=== PATIENT | male | born 1975 | race Caucasian/White ===

== ENCOUNTER 2017-04-09 20:51 | Observation (INO) | payer BC, OTHER ==
[2017-04-09] MEDS ORDERED: SODIUM CHLORIDE 0.9% 1,000 ML IV STA (21:26)
--- NOTE | 2017-04-09 21:33 | ED ---
General Adult HPI - General Chief complaint: Neuro Symptoms/Deficit Stated complaint: facial and arm numbness Time Seen by Provider: 04/09/17 21:14 Source: patient Mode of arrival: ambulatory Limitations: no limitations - History of Present Illness Initial comments: Patient is a 41-year-old male who presents to the ED via private vehicle for evaluation of right-sided arm and facial numbness. Patient reports he was at work around 6:30 PM today when he began feeling as though his right arm was asleep. He describes the sensation as tingling, numbness and heaviness. He reports he felt the same sensation his right cheek. He denies any facial droop , slurred speech, difficulty with ambulating. She reports that his arm symptoms have seemed to improve since they initially started however he continues to feel as though his right cheek is numb. Patient does have a history of a sinus surgery last year. He has no family history of stroke, aneurysm or brain bleed that he is aware of. He has no known history of aneurysm. He does report he is having a mild headache today although he does get headaches at times so this is not abnormal for him. - Related Data Home Medications Medication Instructions Recorded Confirmed Cholecalciferol [Vitamin D3] 2,000 unit PO DAILY 05/21/16 04/09/17 Multivitamins, Thera [Multivitamin] 1 tab PO DAILY 05/21/16 04/09/17 Escitalopram [Lexapro] 20 mg PO DAILY 07/17/16 04/09/17 Fluticasone Nasal [place] [Flonase 2 spr EA NOSTRIL DAILY 04/09/17 04/09/17 Nasal [place]] L.acidoph,Paracasei, B.lactis 1 cap PO DAILY 04/09/17 04/09/17 [Probiotic] Montelukast [Singulair] 10 mg PO HS 04/09/17 04/09/17 Naproxen Sodium [Aleve] 220 mg PO BID 04/09/17 04/09/17 Allergies Allergy/AdvReac Type Severity Reaction Status Date / Time No Known Allergies Allergy Verified 04/09/17 21:41 Review of Systems ROS Statement: Those systems with pertinent positive or pertinent negative responses have been documented in the HPI. ROS Other: All systems not noted in ROS Statement are negative. Constitutional: Denies: fever, chills Eyes: Denies: eye pain, eye discharge, vision change ENT: Denies: ear pain, throat pain, dental pain, hearing loss Respiratory: Denies: cough, dyspnea Cardiovascular: Denies: chest pain, palpitations Endocrine: Denies: fatigue Gastrointestinal: Denies: abdominal pain, nausea, vomiting Musculoskeletal: Denies: back pain Skin: Reports: lesions (bug bite to right thigh). Denies: rash, change in color Neurological: Reports: headache, numbness, paresthesias. Denies: abnormal gait , vertigo Psychiatric: Denies: anxiety Hematological/Lymphatic: Denies: easy bleeding, easy bruising Past Medical History Past Medical History: No Reported History, Hyperlipidemia History of Any Multi-Drug Resistant Organisms: None Reported Past Surgical History: Cholecystectomy Additional Past Surgical History / Comment(s): dev. septum repair, polyp ectomy 07/13 Past Psychological History: Anxiety Smoking Status: Never smoker Past Alcohol Use History: Occasional Past Drug Use History: None Reported General Exam Limitations: no limitations General appearance: alert, in no apparent distress Head exam: Present: atraumatic, normocephalic, normal inspection Eye exam: Present: normal appearance, PERRL, EOMI. Absent: scleral icterus, conjunctival injection, periorbital swelling ENT exam: Present: normal exam, normal oropharynx, mucous membranes moist, TM's normal bilaterally, normal external ear exam. Absent: mucous membranes dry Neck exam: Present: normal inspection. Absent: tenderness, meningismus, lymphadenopathy Respiratory exam: Present: normal lung sounds bilaterally. Absent: respiratory distress, wheezes, rales, rhonchi, stridor Cardiovascular Exam: Present: regular rate, normal rhythm, normal heart sounds. Absent: systolic murmur, diastolic murmur, rubs, gallop, clicks GI/Abdominal exam: Present: soft, normal bowel sounds. Absent: distended, tenderness, guarding, rebound, rigid Rectal exam: Present: deferred Extremities exam: Present: normal inspection, full ROM, normal capillary refill. Absent: tenderness, pedal edema, joint swelling, calf tenderness Right Shoulder Exam: Present: normal inspection, full ROM. Absent: tenderness, swelling, abrasion, laceration, ecchymosis, deformity, crepitus, dislocation, erythema, tenderness over AC joint Upper Arm exam: Present: normal inspection, full ROM. Absent: tenderness, swelling, abrasion, laceration, ecchymosis, deformity, crepidus, dislocation, erythema Elbow exam: Present: normal inspection, full ROM. Absent: tenderness, swelling , abrasion, laceration, ecchymosis, deformity, crepitus, dislocation, erythema, effusion, pain w/ pronation/supination, tenderness over radial head Forearm Wrist exam: Present: normal inspection, full ROM. Absent: tenderness, swelling, abrasion, laceration, ecchymosis, deformity, crepitus, dislocation, erythema, tenderness over anatomical snuff box, pain with axial thumb loading Hand Wrist exam: Present: normal inspection. Absent: full ROM, tenderness, swelling, abrasion, laceration, ecchymosis, deformity, crepitus, dislocation, erythema, amputation, nail avulsion, subungual hematoma Neuro motor exam: Present: wrist extension intact, thumb opposition intact, thumb IP flexion intact, thumb adduction intact, fingers 2-5 abduction intact Neurosensory exam: Present: radial nerve intact, ulnar nerve intact, median nerve intact Vascular: Present: normal capillary refill. Absent: vascular compromise, pulse deficit radial art, pulse deficit ulnar art Neurological exam: Present: alert, oriented X3, CN II-XII intact. Absent: motor sensory deficit Psychiatric exam: Present: normal affect, normal mood Skin exam: Present: warm, dry, intact, normal color. Absent: rash Course Vital Signs 04/09/17 04/09/17 21:00 22:01 Temperature 96.9 F L Pulse Rate 70 60 Respiratory 18 20 Rate Blood Pressure 109/66 130/58 O2 Sat by Pulse 98 98 Oximetry Medical Decision Making - Medical Decision Making Patient was seen and evaluated, history was obtained from the patient and at bedside Patient with sudden onset of right arm paresthesias and right face paresthesias around 6:30 PM Patient with limited risk factors, only risk factors being obesity and hyperlipidemia. No family history, not a smoker, no history of aneurysms We'll evaluate for possible TIA Patient's NIH score is 0 upon arrival to the ER Labs and CT were ordered Labs mild elevation of CPK, patient denies any recent workout or excessive muscle use. Head CT with no acute process Patient reevaluated, was sleeping comfortably in bed. Upon waking he continues to complain of mild discomfort in the right arm. Patient care was discussed with the admitting team, Dr Clancy, discussed patient's history, history of present illness, physical exam as well as neurologic exam. Admitting team agreed to admission for possible TIA with elevated CPK of unknown cause - Lab Data Result diagrams: 04/09/17 21:58 04/09/17 21:58 Lab Results 04/09/17 04/09/17 04/09/17 Range/Units 21:58 21:58 21:58 WBC 6.9 (3.8-10.6) k/uL RBC 4.92 (4.30-5.90) m/uL Hgb 14.9 (13.0-17.5) gm/dL Hct 43.0 (39.0-53.0) % MCV 87.3 (80.0-100.0) fL MCH 30.3 (25.0-35.0) pg MCHC 34.7 (31.0-37.0) g/dL RDW 13.1 (11.5-15.5) % Plt Count 167 (150-450) k/uL Neutrophils % 60 % Lymphocytes % 28 % Monocytes % 6 % Eosinophils % 2 % Basophils % 1 % Neutrophils # 4.1 (1.3-7.7) k/uL Lymphocytes # 2.0 (1.0-4.8) k/uL Monocytes # 0.4 (0-1.0) k/uL Eosinophils # 0.2 (0-0.7) k/uL Basophils # 0.0 (0-0.2) k/uL PT (9.0-12.0) sec INR (<1.2) APTT (22.0-30.0) sec Sodium 139 (137-145) mmol/L Potassium 4.1 (3.5-5.1) mmol/L Chloride 105 (98-107) mmol/L Carbon Dioxide 25 (22-30) mmol/L Anion Gap 9 mmol/L BUN 19 (9-20) mg/dL Creatinine 1.02 (0.66-1.25) mg/dL Est GFR (MDRD) Af Amer >60 (>60 ml/min/1.73 sqM) Est GFR (MDRD) Non-Af >60 (>60 ml/min/1.73 sqM) Glucose 86 (74-99) mg/dL Calcium 9.1 (8.4-10.2) mg/dL Total Bilirubin 0.6 (0.2-1.3) mg/dL AST 48 (17-59) U/L ALT 44 (21-72) U/L Alkaline Phosphatase 59 (38-126) U/L Total Creatine Kinase 278 H (55-170) U/L CK-MB (CK-2) 2.2 (0.0-2.4) ng/mL CK-MB (CK-2) Rel Index 0.8 Troponin I <0.012 (0.000-0.034) ng/mL Total Protein 7.0 (6.3-8.2) g/dL Albumin 4.2 (3.5-5.0) g/dL Urine Color Urine Appearance (Clear) Urine pH (5.0-8.0) Ur Specific [place] (1.001-1.035) Urine Protein (Negative) Urine Glucose (UA) (Negative) Urine Ketones (Negative) Urine Blood (Negative) Urine Nitrite (Negative) Urine Bilirubin (Negative) Urine Urobilinogen (<2.0) mg/dL Ur Leukocyte Esterase (Negative) Urine Opiates Screen (NotDetected) Ur Oxycodone Screen (NotDetected) Urine Methadone Screen (NotDetected) Ur Propoxyphene Screen (NotDetected) Ur Barbiturates Screen (NotDetected) U Tricyclic Antidepress (NotDetected) Ur Phencyclidine Scrn (NotDetected) Ur Amphetamines Screen (NotDetected) U Methamphetamines Scrn (NotDetected) U Benzodiazepines Scrn (NotDetected) Urine Cocaine Screen (NotDetected) U Marijuana (THC) Screen (NotDetected) 04/09/17 04/09/17 04/09/17 Range/Units 21:58 22:15 22:15 WBC (3.8-10.6) k/uL RBC (4.30-5.90) m/uL Hgb (13.0-17.5) gm/dL Hct (39.0-53.0) % MCV (80.0-100.0) fL MCH (25.0-35.0) pg MCHC (31.0-37.0) g/dL RDW (11.5-15.5) % Plt Count (150-450) k/uL Neutrophils % % Lymphocytes % % Monocytes % % Eosinophils % % Basophils % % Neutrophils # (1.3-7.7) k/uL Lymphocytes # (1.0-4.8) k/uL Monocytes # (0-1.0) k/uL Eosinophils # (0-0.7) k/uL Basophils # (0-0.2) k/uL PT 9.8 (9.0-12.0) sec INR 1.0 (<1.2) APTT 23.1 (22.0-30.0) sec Sodium (137-145) mmol/L Potassium (3.5-5.1) mmol/L Chloride (98-107) mmol/L Carbon Dioxide (22-30) mmol/L Anion Gap mmol/L BUN (9-20) mg/dL Creatinine (0.66-1.25) mg/dL Est GFR (MDRD) Af Amer (>60 ml/min/1.73 sqM) Est GFR (MDRD) Non-Af (>60 ml/min/1.73 sqM) Glucose (74-99) mg/dL Calcium (8.4-10.2) mg/dL Total Bilirubin (0.2-1.3) mg/dL AST (17-59) U/L ALT (21-72) U/L Alkaline Phosphatase (38-126) U/L Total Creatine Kinase (55-170) U/L CK-MB (CK-2) (0.0-2.4) ng/mL CK-MB (CK-2) Rel Index Troponin I (0.000-0.034) ng/mL Total Protein (6.3-8.2) g/dL Albumin (3.5-5.0) g/dL Urine Color Light Yellow Urine Appearance Clear (Clear) Urine pH 6.5 (5.0-8.0) Ur Specific [place] 1.004 (1.001-1.035) Urine Protein Negative (Negative) Urine Glucose (UA) Negative (Negative) Urine Ketones Negative (Negative) Urine Blood Negative (Negative) Urine Nitrite Negative (Negative) Urine Bilirubin Negative (Negative) Urine Urobilinogen <2.0 (<2.0) mg/dL Ur Leukocyte Esterase Negative (Negative) Urine Opiates Screen Not Detected (NotDetected) Ur Oxycodone Screen Not Detected (NotDetected) Urine Methadone Screen Not Detected (NotDetected) Ur Propoxyphene Screen Not Detected (NotDetected) Ur Barbiturates Screen Not Detected (NotDetected) U Tricyclic Antidepress Not Detected (NotDetected) Ur Phencyclidine Scrn Not Detected (NotDetected) Ur Amphetamines Screen Not Detected (NotDetected) U Methamphetamines Scrn Not Detected (NotDetected) U Benzodiazepines Scrn Not Detected (NotDetected) Urine Cocaine Screen Not Detected (NotDetected) U Marijuana (THC) Screen Not Detected (NotDetected) Disposition Clinical Impression: TIA (transient ischemic attack), Elevated CPK Disposition: ADMITTED IP TO THIS HOSP Condition: Good Referrals: Toni Grace MD [Primary Care Provider] - 1-2 days
--- NOTE | 2017-04-09 22:07 | CT ---
EXAMINATION TYPE: CT brain wo con DATE OF EXAM: 04/09/2017 COMPARISON: 08/10/2016 HISTORY: Left sided arm pain and numbness CT DLP: 1090.4 mGycm. Automated Exposure Control for Dose Reduction was Utilized. TECHNIQUE: CT scan of the head is performed without contrast. FINDINGS: Ventricles of normal size. There is no mass effect nor midline shift. There is no sign of i ntracranial hemorrhage. The calvarium is intact.. IMPRESSION: Negative CT scan of the brain. There is clearing of the sinus fluid levels compared to ol d exam. No sign of cerebral infarct..
[2017-04-09 22:13] LABS: Basophils % (A) 1 %; CH 30.1; CHCM 34.6; Eosinophils # (A) 0.2 k/uL (0-0.7); Eosinophils % (A) 2 %; HDW 2.57; HGB 14.9 gm/dL (13.0-17.5); Luc # (Auto) 0.15; Luc % (Auto) 2; Lymphocytes % (A) 28 %; MCH 30.3 pg (25.0-35.0); MCHC 34.7 g/dL (31.0-37.0); MCV 87.3 fL (80.0-100.0); Mean Platelet Volume 7.9; Monocytes # (A) 0.4 k/uL (0-1.0); Monocytes % (A) 6 %; Neutrophils # (A) 4.1 k/uL (1.3-7.7); Neutrophils % (A) 60 %; RBC 4.92 m/uL (4.30-5.90); RDW 13.1 % (11.5-15.5); WBC 6.9 k/uL (3.8-10.6); WBC (Perox) 7.01
--- NOTE | 2017-04-09 22:15 | XR ---
EXAMINATION TYPE: XR chest 2V DATE OF EXAM: 04/09/2017 COMPARISON: 05/21/2016 HISTORY: Left arm numbness TECHNIQUE: Frontal and lateral views of the chest are obtained. FINDINGS: Heart and mediastinum are normal. Lungs are clear. Diaphragm is normal. Bony thorax is int act. IMPRESSION: Normal chest. No change.
[2017-04-09 22:21] LABS: Partial Thromboplastin Time 23.1 sec (22.0-30.0); Prothrombin Time 9.8 sec (9.0-12.0)
[2017-04-09 22:23] LABS: Appearance,Urine Clear (Clear); Bilirubin,Urine Negative (Negative); Glucose,Urine (UA) Negative (Negative); Ketones,Urine Negative (Negative); Leukocyte Esterase,Urine Negative (Negative); Nitrite,Urine Negative (Negative); PH, Urine 6.5 (5.0-8.0); Protein,Urine Negative (Negative); Specific Gravity,Urine 1.004 (1.001-1.035); UA Billing (MACRO vs. MICRO) CHEM; Urobilinogen,Urine <2.0 mg/dL (<2.0)
[2017-04-09 22:37] LABS: ALT 44 U/L (21-72); AST 48 U/L (17-59); Alkaline Phosphatase 59 U/L (38-126); Anion Gap 9 mmol/L; Blood Urea Nitrogen 19 mg/dL (9-20); Calcium 9.1 mg/dL (8.4-10.2); Carbon Dioxide 25 mmol/L (22-30); Chloride 105 mmol/L (98-107); Creatine Kinase 278 U/L (55-170); Glucose 86 mg/dL (74-99); Non-African American GFR(MDRD) >60 (>60 ml/min/1.73 sqM); Potassium 4.1 mmol/L (3.5-5.1); Sodium 139 mmol/L (137-145); Total Bilirubin 0.6 mg/dL (0.2-1.3)
[2017-04-09 22:49] LABS: Creatine Kinase MB 2.2 ng/mL (0.0-2.4); Troponin I <0.012 ng/mL (0.000-0.034)
[2017-04-09] MEDS ORDERED: NALOXONE 0.4 MG/ML 1 ML VIAL IV PRN (23:42)
[2017-04-10] MEDS ORDERED: ASPIRIN 325 MG TAB PO STA ×2 (00:06→05:53)
[2017-04-10] MEDS ORDERED: ATORVASTATIN 80 MG TAB PO STA (00:06)
--- NOTE | 2017-04-10 00:13 | P.HPIM ---
History of Present Illness H&P Date: 04/10/17 Chief Complaint: Right sided numbness 41 years old gentleman without significant past medical history, who presented to the ED after complaints of right arm tingling/heaviness as well as right sided facial numbness that started suddenly when he was at work at 6:30 PM. No exacerbating or alleviating factors. He denied prior stroke/TIA/similar symptoms. He did report questionable hyperlipidemia history. All his symptoms resolved in the ED upon arrival and his NIHSS was 0. CT head in the ED was unremarkable and his UDS was also unremarkable, and his vital signs were stable. He was however noted to have a CK of 278, and was given 1 L bolus of NS. Review of Systems Constitutional: Patient reports no fever, no chills, no weight changes, no change in appetite Eyes: Patient reports no double vision, no visual changes ENT: Patient reports no rhinorrhea, no post nasal drip, no sore throat Cardiovascular: Patient reports no chest, no edema, no palpitations, no syncope , no orthopnea, no paroxysmal nocturnal dyspnea. Respiratory: Patient reports no dyspnea, no cough, no wheeze Gastrointestinal: Patient reports no nausea, no vomiting, no constipation, no diarrhea Genitourinary: Patient reports no dysuria, no urinary frequency, no hematuria. Musculoskeletal: Patient reports no unusual joint pain, no joint swelling or weakness. Patient reports no muscular pain. Psychiatric: Patient reports no changes in mood, no sleeping problems. Patient reports no changes in memory. Endocrine: Patient reports no thirst, no polyuria, no cold intolerance, no heat intolerance. Neurological: Patient reports no unusual paresthesias, no seizures, no paresis , no paralysis, no facila droop. Heme/Lymphatic: Patient reports no easy bruising, no bleeding tendency, no lymphadenopathy. Allergic/ Immunologic: Patient reports no recent allergic reactions or immunologic history. Skin: Patient reports no rashes or unusual lesions. Past Medical History Past Medical History: No Reported History, Hyperlipidemia History of Any Multi-Drug Resistant Organisms: None Reported Past Surgical History: Cholecystectomy Additional Past Surgical History / Comment(s): dev. septum repair, polyp ectomy 07/13 Past Psychological History: Anxiety Smoking Status: Never smoker Past Alcohol Use History: Occasional Past Drug Use History: None Reported - Past Family History Mother Family Medical History: Asthma, COPD, Hyperlipidemia Father Family Medical History: Hyperlipidemia, Hypertension, Osteoarthritis (OA) Medications and Allergies Home Medications Medication Instructions Recorded Confirmed Type Cholecalciferol [Vitamin D3] 2,000 unit PO DAILY 05/21/16 04/09/17 History Multivitamins, Thera [Multivitamin] 1 tab PO DAILY 05/21/16 04/09/17 History Escitalopram [Lexapro] 20 mg PO DAILY 07/17/16 04/09/17 History Fluticasone Nasal [place] [Flonase 2 spr EA NOSTRIL DAILY 04/09/17 04/09/17 History Nasal [place]] L.acidoph,Paracasei, B.lactis 1 cap PO DAILY 04/09/17 04/09/17 History [Probiotic] Montelukast [Singulair] 10 mg PO HS 04/09/17 04/09/17 History Naproxen Sodium [Aleve] 220 mg PO BID 04/09/17 04/09/17 History Allergies Allergy/AdvReac Type Severity Reaction Status Date / Time No Known Allergies Allergy Verified 04/09/17 21:41 Physical Exam Vitals: Vital Signs Temp Pulse Resp BP Pulse Ox 04/09/17 22:01 60 20 130/58 98 04/09/17 21:00 96.9 F L 70 18 109/66 98 Intake and Output 04/09/17 04/09/17 04/10/17 14:59 22:59 06:59 Other: Weight 90.718 kg Patient Weight 04/10/17 06:59 Weight 90.718 kg Constitutional: No acute distress, conversant, pleasant Eyes: Anicteric sclerae, moist conjunctiva, no lid-lag PERRLA ENMT: NC/AT Oropharynx clear, no erythema, exudates Neck: Supple, FROM, no masses, or JVD No carotid bruits No thyromegaly Lungs: Clear to auscultation Clear to percussion Normal respiratory effort, no accessory muscle use Cardiovascular: Heart regular in rate and rhythm, No murmurs, gallops, or rubs No peripheral edema Abdominal: Soft Nontender, no guarding, rebound or rigidity Abdomen moving with respiration Normoactive bowel sounds No hepatomegaly, No splenomegaly No palpable mass No abdominal wall hernia noted Skin: Normal temperature, tone, texture, turgor No induration No subcutaneous nodules No rash, lesions No ulcers Extremities: No digital cyanosis No clubbing Pedal pulses intact and symmetrical Radial pulses intact and symmetrical Normal gait and station No calf tenderness Psychiatric: Alert and oriented to person, place and time Appropriate affect Intact judgement Neuro: Muscles Strength 5/5 in all 4 extremities Sensation to light touch grossly present throughout Cranial nerves II-XII grossly intact No focal sensory deficits Results CBC & Chem 7: 04/09/17 21:58 04/09/17 21:58 Labs: Abnormal Lab Results - Last 24 Hours (Table) 04/09/17 Range/Units 21:58 Total Creatine Kinase 278 H (55-170) U/L Comments: CT head was unremarkable Thrombosis Risk Factor Assmnt - DVT/VTE Prophylaxis DVT/VTE Prophylaxis: Low risk, early ambulation encouraged - Choose All That Apply Each Factor Represents 1 point: Obesity (BMI >25) Thrombosis Risk Factor Assessment Total Risk Factor Score: 1 Thrombosis Risk Factor Assessment Level: Low Risk Assessment and Plan Plan: #Right sided transient numbness, resolved, likely TIA versus stress related symptoms -Workup for TIA including CT head was negative, pending echo pending carotid Dopplers, pending lipid panel, pending TSH and HbA1c -Full dose aspirin given upon admission, daily baby aspirin, statin -Neurology consult -Permissive hypertension #History of hyperlipidemia -Pending lipid panel #Elevated CK -No fall was reported by the patient, this is possibly related to dehydration -Continue IV fluids for now #Obesity -Indicated about importance of weight control CODE: Full code DVT prophylaxis with aspirin and SCDs Patient is admitted to observation status.
[2017-04-10 01:07] VITALS: BMI 29.8
[2017-04-10] MEDS: ATORVASTATIN 80 MG TAB PO SCH ×2 (06:57→08:42)
[2017-04-10] MEDS: SODIUM CHLORIDE 0.9% 1,000 ML IV SCH ×4 (07:20→22:21)
[2017-04-10 09:03] LABS: Hemoglobin A1C 5.5 % (4.2-6.1)
[2017-04-10] MEDS: ESCITALOPRAM 20 MG TAB PO SCH (09:38)
[2017-04-10] MEDS: CHOLECALCIFEROL 1,000 UNIT TAB PO SCH (09:38)
[2017-04-10] MEDS: ACETAMINOPHEN TAB 325 MG TAB PO PRN ×2 (11:54→18:35)
--- NOTE | 2017-04-10 12:00 | P.PN ---
Progress Note - Text patient was seen and examined briefly as a follow up patient is currently doing well, no new complaints, he reports resolution of his right facial numbness and right hand numbness. denies any other focal neurologic deficits I answered all his questions and concerns and explained to him the pending workup and anticipated discharge date. he verbalized understanding
[2017-04-10 12:01] VITALS: RESP 16
--- NOTE | 2017-04-10 14:40 | US ---
EXAMINATION TYPE: US carotid duplex BILAT DATE OF EXAM: 04/10/2017 COMPARISON: NONE CLINICAL HISTORY: TIA. Right arm numbness, right facial tingling EXAM MEASUREMENTS: RIGHT: Peak Systolic Velocity (PSV) cm/sec ----- Right CCA: 86.7 ----- Right ICA: 79.1 ----- Right ECA: 109.4 ICA/CCA ratio: 0.9 RIGHT: End Diastole cm/sec ----- Right CCA: 24.8 ----- Right ICA: 31.1 ----- Right ECA: 19.7 LEFT: Peak Systolic Velocity (PSV) cm/sec ----- Left CCA: 85.5 ----- Left ICA: 80.3 ----- Left ECA: 92.1 ICA/CCA ratio: 0.9 LEFT: End Diastole cm/sec ----- Left CCA: 26.0 ----- Left ICA: 37.3 ----- Left ECA: 17.6 VERTEBRALS (direction of flow): Right Vertebral: Antegrade Left Vertebral: Antegrade No evidence of significant stenosis. Incidental finding: left lobe thyroid nodules, largest =2.4 x 2. 1 x 2.3cm lower pole IMPRESSION: No hemodynamic significant stenosis of the proximal internal carotid arteries bilaterall y by Doppler criteria, an indirect measurement of carotid stenosis
[2017-04-10] MEDS ORDERED: IBUPROFEN 600 MG TAB PO STA (15:33)
--- NOTE | 2017-04-10 20:35 | ECHOF ---
Referral Reason:TIA MEASUREMENTS -------- HEIGHT: 175.3 cm WEIGHT: 91.6 kg BP: 119/73 RVIDd: 3.6 cm (< 3.3) IVSd: 0.9 cm (0.6 - 1.1) LVIDd: 4.9 cm (3.9 - 5.3) LVPWd: 0.8 cm (0.6 - 1.1) IVSs: 1.3 cm LVIDs: 3.5 cm LVPWs: 1.4 cm LA Diam: 4.1 cm (2.7 - 3.8) LAESV Index (A-L): 34.52 ml/m Ao Diam: 3.7 cm (2.0 - 3.7) AV Cusp: 2.7 cm (1.5 - 2.6) MV EXCURSION: 15.965 mm (> 18.000) MV EF SLOPE: 94 mm/s (70 - 150) EPSS: 1.2 cm MV E Rajinder: 0.95 m/s MV DecT: 252 ms MV A Rajinder: 0.69 m/s MV E/A Ratio: 1.37 RAP: 5.00 mmHg RVSP: 21.28 mmHg FINDINGS -------- Sinus rhythm. This was a technically good study. The left ventricular size is normal. Left ventricular wall thickness is normal. Overall left ventricular systolic function is normal with, an EF between 60 - 65 %. The right ventricle is mildly enlarged. LA is moderately dilated 34-39 ml/m2 The right atrium is normal in size. The aortic valve is trileaflet and appears structurally normal. There is trace to mild mitral regurgitation. Mild tricuspid regurgitation present. Right ventricular systolic pressure is normal at < 35 mmHg. There is no pulmonic regurgitation present. The aortic root is dilated measuring 3.7cm. inferior vena cava with normal inspiratory collapse consistent with estimated right atrial pressure of 5 mmHg. The inferior vena cava is mildly dilated. There is no pericardial effusion. CONCLUSIONS -------- 1. Sinus rhythm. 2. There is trace to mild mitral regurgitation. 3. Mild tricuspid regurgitation present. 4. Right ventricular systolic pressure is normal at < 35 mmHg. 5. There is no pulmonic regurgitation present. 6. The aortic root is dilated measuring 3.7cm. 7. inferior vena cava with normal inspiratory collapse consistent with estimated right atrial pressure of 5 mmHg. 8. The inferior vena cava is mildly dilated. 9. There is no pericardial effusion. 10. This was a technically good study. 11. The left ventricular size is normal. 12. Left ventricular wall thickness is normal. 13. Overall left ventricular systolic function is normal with, an EF between 60 - 65 %. 14. The right ventricle is mildly enlarged. 15. LA is moderately dilated 34-39 ml/m2 16. The right atrium is normal in size. 17. The aortic valve is trileaflet and appears structurally normal. [employer] ADJUSTER: Dana Montilla RDCS
[2017-04-10] MEDS ORDERED: MONTELUKAST 10 MG TAB PO SCH (21:00)
--- NOTE | 2017-04-10 21:34 | P.CNNES ---
History of Present Illness Consult date: 04/10/17 History of Present Illness: The patient is a 41-year-old right-handed white male who works at [employer] and he states he was at work around 6 in the evening yesterday when he developed right face and right arm numbness and tingling. He denied any weakness in the arm. He denied any numbness in the right leg. He denied any other associated symptoms such as loss of speech or visual changes. He did develop a headache in the crown of his head. That headache is improved and is currently 2/10 in intensity. His right arm numbness lasted for one hour in the right face numbness lasted for 2 hours. He has no past history of such symptoms. He had a CT of the brain in the emergency room which showed no acute abnormality he had a carotid ultrasound which did not show any significant stenosis Review of Systems Constitutional: Denies chills, Denies fever Ears, nose, mouth and throat: Denies headache, Denies sore throat Respiratory: Denies cough Gastrointestinal: Denies abdominal pain, Denies diarrhea, Denies nausea, Denies vomiting Musculoskeletal: Denies myalgias Neurological: Denies numbness, Denies weakness Psychiatric: Denies anxiety, Denies depression Past Medical History Past Medical History: No Reported History, Hyperlipidemia History of Any Multi-Drug Resistant Organisms: None Reported Past Surgical History: Cholecystectomy Additional Past Surgical History / Comment(s): dev. septum repair, polyp ectomy 07/13 Past Anesthesia/Blood Transfusion Reactions: No Reported Reaction Past Psychological History: Anxiety Smoking Status: Never smoker Past Alcohol Use History: Occasional Past Drug Use History: None Reported - Past Family History Mother Family Medical History: Asthma, COPD, Hyperlipidemia Father Family Medical History: Hyperlipidemia, Hypertension, Osteoarthritis (OA) Medications and Allergies Home Medications Medication Instructions Recorded Confirmed Type Cholecalciferol [Vitamin D3] 2,000 unit PO DAILY 05/21/16 04/09/17 History Multivitamins, Thera [Multivitamin] 1 tab PO DAILY 05/21/16 04/09/17 History Escitalopram [Lexapro] 20 mg PO DAILY 07/17/16 04/09/17 History Fluticasone Nasal [place] [Flonase 2 spr EA NOSTRIL DAILY 04/09/17 04/09/17 History Nasal [place]] L.acidoph,Paracasei, B.lactis 1 cap PO DAILY 04/09/17 04/09/17 History [Probiotic] Montelukast [Singulair] 10 mg PO HS 04/09/17 04/09/17 History Naproxen Sodium [Aleve] 220 mg PO BID 04/09/17 04/09/17 History Allergies Allergy/AdvReac Type Severity Reaction Status Date / Time No Known Allergies Allergy Verified 04/09/17 21:41 Physical Examination - Vital Signs Vital Signs: Vital Signs Temp Pulse Pulse Resp BP BP Pulse Ox 04/10/17 20:00 97.8 F 68 16 118/78 94 L 04/10/17 16:00 97.2 F L 62 16 109/65 04/10/17 11:56 97.8 F 71 16 104/62 94 L 04/10/17 08:15 97.8 F 63 16 118/76 98 04/10/17 04:00 97.3 F L 68 18 99/61 97 04/10/17 01:00 59 L 04/10/17 00:53 97.0 F L 59 L 18 119/73 98 04/10/17 00:35 98 F 72 20 130/69 97 04/09/17 22:01 60 20 130/58 98 Intake and Output 04/10/17 04/10/17 04/10/17 06:59 14:59 22:59 Intake Total 1000 600 240 Balance 1000 600 240 Intake: IV 1000 Sodium Chloride 0.9% 1, 1000 000 ml @ 125 mls/hr IV . Q8H [facility] Rx#:[id number] Oral 600 240 Other: Voiding Method Toilet Toilet Toilet # Voids 1 1 Weight 91.7 kg - Constitutional General appearance: average body habitus - EENT EENT: PERRL - Respiratory Respiratory: chest non-tender, lungs clear - Cardiovascular Cardiovascular: regular rate, normal S1, normal S2 - Integumentary Integumentary: normal - Neurologic Mental status he was awake alert and oriented there was no a aphasia or dysarthria Cranial nerve examination: PERRL, EOMI, VFF, V1/V2/V3 grossly intact, face symmetric, tongue midline, intact Speech examination: intact Detailed motor examination: grossly full strength in all extremities Detailed sensory examination: intact Reflexes: 2+: knee - Psychiatric Psychiatric: mood/affect appropriate Results - Laboratory Findings CBC and BMP: 04/09/17 21:58 04/09/17 21:58 Abnormal Lab Findings: Abnormal Labs 04/09/17 21:58 Total Creatine Kinase 278 H Assessment and Plan (1) TIA (transient ischemic attack) Status: Acute Code(s): G45.9 - TRANSIENT CEREBRAL ISCHEMIC ATTACK, UNSPECIFIED Plan: The patient is a 41-year-old man admitted with episode of right face and arm numbness. He had a carotid ultrasound which was unremarkable and echocardiogram which is unremarkable. He has no significant risk factors for stroke. Recommend further evaluation with COLLEEN. His had a negative CT brain and he is neurologically intact at present. Recommend baby aspirin daily for stroke prophylaxis
[2017-04-11 06:15] LABS: Basophils % (A) 1 %; CH 30.9; CHCM 33.8; Eosinophils # (A) 0.1 k/uL (0-0.7); Eosinophils % (A) 3 %; HDW 2.51; HGB 12.8 gm/dL (13.0-17.5); Luc # (Auto) 0.13; Luc % (Auto) 3; Lymphocytes # (A) 1.4 k/uL (1.0-4.8); Lymphocytes % (A) 27 %; MCH 29.5 pg (25.0-35.0); MCHC 32.1 g/dL (31.0-37.0); MCV 91.9 fL (80.0-100.0); Mean Platelet Volume 8.6; Monocytes # (A) 0.3 k/uL (0-1.0); Monocytes % (A) 7 %; Neutrophils % (A) 60 %; RBC 4.35 m/uL (4.30-5.90); RDW 14.3 % (11.5-15.5); WBC (Perox) 5.21
[2017-04-11 06:31] LABS: Anion Gap 7 mmol/L; Blood Urea Nitrogen 14 mg/dL (9-20); Calcium 8.4 mg/dL (8.4-10.2); Carbon Dioxide 24 mmol/L (22-30); Chloride 110 mmol/L (98-107); Glucose 92 mg/dL (74-99); Non-African American GFR(MDRD) >60 (>60 ml/min/1.73 sqM); Potassium 4.3 mmol/L (3.5-5.1); Sodium 141 mmol/L (137-145)
[2017-04-11] MEDS ORDERED: ASPIRIN 81 MG CHEW PO SCH (09:00)
[2017-04-11] MEDS: ACETAMINOPHEN TAB 325 MG TAB PO PRN (09:27)
--- NOTE | 2017-04-11 09:37 | P.CRDCN ---
History of Present Illness Consult date: 04/11/17 Requesting physician: Fatoumata Antonio Reason for Consult (text): Request for COLLEEN Chief complaint: Right arm numbness and right facial numbness History of present illness: This is a pleasant 41-year-old gentleman with no prior documented history of hypertension, no diabetes, no hyperlipidemia, he is a nonsmoker. He presents to the hospital with symptoms of right arm tingling and numbness with associated right facial numbness. He states that symptoms started suddenly while he was at work. He denies any other associated symptoms. By the time the patient came to the emergency room the symptoms are completely resolved. EKG on arrival here showed normal sinus rhythm with no acute changes. CAT scan of the brain negative. Chest x-ray normal. Blood pressure 110/60 heart rate in the 60s. CBC normal. Potassium 4.1, BUN 19, creatinine 1.0. Troponin 0.012. Cholesterol 156, triglycerides 131, LDL 89, HDL41. Echocardiogram with Doppler study was performed which revealed an ejection fraction of 60-65%. At the time of my examination this morning, patient is completely back to his normal self. Cardiology was requested to see the patient to perform transesophageal echocardiographic study. This procedure was explained to the patient in detail. This will be performed by Dr. Vargas today. Past Medical History Past Medical History: No Reported History, Hyperlipidemia History of Any Multi-Drug Resistant Organisms: None Reported Past Surgical History: Cholecystectomy Additional Past Surgical History / Comment(s): dev. septum repair, polyp ectomy 07/13 Past Anesthesia/Blood Transfusion Reactions: No Reported Reaction Past Psychological History: Anxiety Smoking Status: Never smoker Past Alcohol Use History: Occasional Past Drug Use History: None Reported - Past Family History Mother Family Medical History: Asthma, COPD, Hyperlipidemia Father Family Medical History: Hyperlipidemia, Hypertension, Osteoarthritis (OA) Medications and Allergies Home Medications Medication Instructions Recorded Confirmed Type Cholecalciferol [Vitamin D3] 2,000 unit PO DAILY 05/21/16 04/09/17 History Multivitamins, Thera [Multivitamin] 1 tab PO DAILY 05/21/16 04/09/17 History Escitalopram [Lexapro] 20 mg PO DAILY 07/17/16 04/09/17 History Fluticasone Nasal [place] [Flonase 2 spr EA NOSTRIL DAILY 04/09/17 04/09/17 History Nasal [place]] L.acidoph,Paracasei, B.lactis 1 cap PO DAILY 04/09/17 04/09/17 History [Probiotic] Montelukast [Singulair] 10 mg PO HS 04/09/17 04/09/17 History Naproxen Sodium [Aleve] 220 mg PO BID 04/09/17 04/09/17 History Allergies Allergy/AdvReac Type Severity Reaction Status Date / Time No Known Allergies Allergy Verified 04/09/17 21:41 Physical Exam Vitals: Vital Signs Temp Pulse Resp BP Pulse Ox 04/11/17 04:00 97.4 F L 66 16 104/69 97 04/11/17 00:00 97.5 F L 65 16 114/66 95 04/10/17 20:00 97.8 F 68 16 118/78 94 L 04/10/17 16:00 97.2 F L 62 16 109/65 04/10/17 11:56 97.8 F 71 16 104/62 94 L Intake and Output 04/10/17 04/11/17 04/11/17 22:59 06:59 14:59 Intake Total 240 1500 0 Balance 240 1500 0 Intake: IV 1500 Sodium Chloride 0.9% 1, 1500 000 ml @ 125 mls/hr IV . Q8H [facility] Rx#:[id number] Oral 240 0 Other: Voiding Method Toilet Toilet # Voids 1 Weight 93.4 kg PHYSICAL EXAMINATION: HEENT: [Head is atraumatic, normocephalic. Pupils equal, round. Neck is supple. There is no elevated jugular venous pressure.] HEART EXAMINATION: [Heart S1, S2 normal. No murmur or gallop heard.] CHEST EXAMINATION:[ Lungs are clear to auscultation and precussion. No chest wall tenderness is noted on palpation or with deep breathing.] ABDOMEN: [ Soft, nontender. Bowel sounds are heard. No organomegaly noted]. EXTREMITIES:[ 2+ peripheral pulses with no evidence of peripheral edema and no calf tenderness noted]. NEUROLOGIC [patient is awake, alert and oriented -3.] . Results 04/11/17 05:34 04/11/17 05:34 CBC 04/11/17 Range/Units 05:34 WBC 5.0 (3.8-10.6) k/uL RBC 4.35 (4.30-5.90) m/uL Hgb 12.8 L (13.0-17.5) gm/dL Hct 40.0 (39.0-53.0) % Plt Count 149 L (150-450) k/uL Comprehensive Metabolic Panel 04/11/17 Range/Units 05:34 Sodium 141 (137-145) mmol/L Potassium 4.3 (3.5-5.1) mmol/L Chloride 110 H (98-107) mmol/L Carbon Dioxide 24 (22-30) mmol/L BUN 14 (9-20) mg/dL Creatinine 0.90 (0.66-1.25) mg/dL Glucose 92 (74-99) mg/dL Calcium 8.4 (8.4-10.2) mg/dL Current Medications Generic Name Dose Route Start Last Admin Trade Name Freq PRN Reason Stop Dose Admin Acetaminophen 650 mg 04/10/17 00:01 04/10/17 18:35 Tylenol Tab PO 650 mg Q6HR PRN Administration Mild Pain or Fever > 100.5 Aspirin 81 mg 04/11/17 09:00 Aspirin PO DAILY [facility] Atorvastatin Calcium 80 mg 04/10/17 05:54 04/10/17 08:42 Lipitor PO Not Given DAILY [facility] Cholecalciferol 2,000 unit 04/10/17 09:00 04/10/17 09:38 Vitamin D3 PO 2,000 unit DAILY [facility] Administration Escitalopram Oxalate 20 mg 04/10/17 09:00 04/10/17 09:38 Lexapro PO 20 mg DAILY [facility] Administration Sodium Chloride 1,000 mls @ 125 mls/hr 04/10/17 00:15 04/10/17 22:21 Saline 0.9% IV 125 mls/hr .Q8H [facility] Administration Montelukast Sodium 10 mg 04/10/17 21:00 04/10/17 20:09 Singulair PO 10 mg HS [facility] Administration Naloxone HCl 0.2 mg 04/09/17 23:42 Narcan IV Q2M PRN Opioid Reversal Intake and Output 04/10/17 04/11/17 04/11/17 22:59 06:59 14:59 Intake Total 240 1500 0 Balance 240 1500 0 Intake: IV 1500 Sodium Chloride 0.9% 1, 1500 000 ml @ 125 mls/hr IV . Q8H [facility] Rx#:[id number] Oral 240 0 Other: Voiding Method Toilet Toilet # Voids 1 Weight 93.4 kg 04/11/17 05:34 04/11/17 05:34 EKG Interpretations (text) EKG shows a normal sinus rhythm with no acute changes. Assessment and Plan Plan: Assessment and plan #1 Symptoms of right arm numbness and tingling, right facial numbness. Rule out TIA #2 cardiac risk factors negative for hypertension, no diabetes, no hyperlipidemia, nonsmoker. Plan We will perform a transesophageal echo cardiographic study today. Risks and benefits were explained to the patient in detail. This will be performed today by Dr. Vargas. DNP note has been reviewed, I agree with a documented findings and plan of care. Patient was seen and examined.
--- NOTE | 2017-04-11 10:36 | P.PN ---
Subjective Principal diagnosis: Patient seen and examined today in follow-up for TIA 41-year-old male with no significant past medical history presented due to sudden acute onset right facial numbness and right upper extremity numbness which has resolved in less than 24 hours patient was admitted for a provisional diagnosis of TIA for further workup. Currently patient reports physical complete resolution of his above-mentioned symptoms, denies any other focal neurologic deficits. Patient reports walking with no limitations, denies any chest pain or trouble breathing, denies any visual changes or hearing changes, denies any headache. Neurology evaluated the patient and recommended to perform COLLEEN. I will follow up on results and if unremarkable patient with possibly be discharged later today Objective - Vital Signs Vital signs: Vital Signs Temp 97.4 F L 04/11/17 04:00 Pulse 66 04/11/17 04:00 Resp 16 04/11/17 04:00 BP 104/69 04/11/17 04:00 Pulse Ox 97 04/11/17 04:00 Intake & Output 04/10/17 04/11/17 04/11/17 18:59 06:59 18:59 Intake Total 840 1500 0 Balance 840 1500 0 Weight 93.4 kg Intake: IV 1500 Sodium Chloride 0.9% 1, 1500 000 ml @ 125 mls/hr IV . Q8H [facility] Rx#:[id number] Oral 840 0 Other: Voiding Method Toilet Toilet # Voids 1 Constitutional: vital signs stable, Not in acute distress, pleasant, conversant Eyes: Pupils equal round reactive to light Lungs: Clear to auscultation bilaterally, clear to percussion, normal respiratory effort no use of accessory muscles Cardiovascular: Regular rate and rhythm, no murmurs, no gallops, no rubs, no peripheral edema Extremities: No digital cyanosis or clubbing, peripheral pulses palpable and equal over bilateral radial arteries and dorsalis pedis arteries, no calf muscle tenderness Psych: Alert, oriented to place, person and time Neuro: Cranial nerves II-XII grossly intact, no focal sensory deficits to touch , strength is grossly 5/5 throughout property assessment monitor showing NSR, some PVCs labs reviewed - Labs CBC & Chem 7: 04/11/17 05:34 04/11/17 05:34 Labs: Abnormal Lab Results - Last 24 Hours (Table) 04/11/17 04/11/17 Range/Units 05:34 05:34 Hgb 12.8 L (13.0-17.5) gm/dL Plt Count 149 L (150-450) k/uL Chloride 110 H (98-107) mmol/L Assessment and Plan (1) TIA (transient ischemic attack) Narrative/Plan: symptoms of right facial and upper extremity numbness has resolved Computed tomography scan of the head was unremarkable Ultrasound of the carotids was unremarkable for any significant stenosis 2-D echo of the heart was unremarkable Neurology recommending COLLEEN pending results Continue with aspirin and statin PT/OT Status: Resolved (2) DVT prophylaxis Narrative/Plan: Low risk and patient is ambulatory Status: Acute (3) Mild anemia Narrative/Plan: Patient denies any GI bleeding. Recommending outpatient follow-up Status: Acute (4) Obesity (BMI 30.0-34.9) Narrative/Plan: Counseled for lifestyle modification and weight loss Status: Chronic Plan: CODE: Full code Possible discharge later today if COLLEEN is negative
[2017-04-11] MEDS ORDERED: MIDAZOLAM 2 MG/2 ML VIAL ONE (11:37)
[2017-04-11] MEDS ORDERED: fentaNYL (PF) 50 MCG/ML 2 ML AMP ONE (11:37)
[2017-04-11] MEDS ORDERED: IV FLUID CONTINUATION 1,000 ML IV ONE (11:48)
[2017-04-11] MEDS: BENZOCAINE SPRAY 1 SPRAY CAN MUCOUS MEM ONE ×2 (11:48→11:55)
[2017-04-11] MEDS ORDERED: MIDAZOLAM 2 MG/2 ML VIAL IVP ONE ×2 (12:00→12:04)
[2017-04-11] MEDS ORDERED: fentaNYL (PF) 50 MCG/ML 2 ML AMP IVP ONE (12:00)
[2017-04-11 13:06] VITALS: TEMP 97.2
[2017-04-11] MEDS: CHOLECALCIFEROL 1,000 UNIT TAB PO SCH (14:28)
[2017-04-11] MEDS: ATORVASTATIN 80 MG TAB PO SCH (14:29)
[2017-04-11] MEDS: SODIUM CHLORIDE 0.9% 1,000 ML IV SCH (14:29)
[2017-04-11] MEDS: ESCITALOPRAM 20 MG TAB PO SCH (14:30)
[2017-04-11 16:18] VITALS: BP 114/70; PULSE 60
--- NOTE | 2017-04-11 16:46 | P.DS ---
Providers Date of admission: 04/09/17 23:42 Expected date of discharge: 04/11/17 Attending physician: Brandy Clancy DO Consults: 04/10/17 00:08 Consult Physician Routine Consulting Provider: John Aragon Consult Reason/Comments: TIA Do you want consulting provider notified?: Yes, Notify in am 04/11/17 07:58 Consult Physician Urgent Consulting Provider: Sanjay Harris Consult Reason/Comments: TIA s/sx- for COLLEEN today Do you want consulting provider notified?: Already Contacted Primary care physician: Toni Grace - Discharge Diagnosis(es) (1) TIA (transient ischemic attack) Current Visit: Yes Status: Resolved (2) Thyroid nodule Current Visit: Yes Status: Acute (3) Mild anemia Current Visit: Yes Status: Acute (4) Obesity (BMI 30.0-34.9) Current Visit: Yes Status: Chronic (5) DVT prophylaxis Current Visit: Yes Status: Acute Hospital Course: 41 years old gentleman without significant past medical history, who presented to the ED after complaints of right arm and right sided facial numbness, started suddenly when he was at work the evening prior to presentation. No exacerbating or alleviating factors. He denied prior stroke/TIA/similar symptoms. All his symptoms resolved in the ED upon arrival and his NIH score was Zero. CT head in the ED was unremarkable and his urine drug screen was also unremarkable, and his vital signs were stable. Patient had the stroke pathway workup, evaluated by neurology. 2-D echo and ultrasound of the carotids were unremarkable. Neurology recommended obtaining COLLEEN. Cardiology consult and COLLEEN was unremarkable. Patient had incidental finding of left thyroid nodule 2 cm in size however TSH was unremarkable. Patient was counseled for outpatient follow-up for further workup regarding his thyroid nodule. Patient was started on aspirin and statin, he was educated regarding side effects of statin including but not limited to liver toxicity and and rhabdomyolysis. Patient was seen and examined on day of discharge she was doing well denies any focal neurologic deficits he was ambulating freely with no limitations. Denies any chest pain or trouble breathing. Reports complete resolution of his initial symptoms Constitutional: vital signs stable, Not in acute distress, pleasant, conversant Lungs: Clear to auscultation bilaterally, clear to percussion, normal respiratory effort no use of accessory muscles Cardiovascular: Regular rate and rhythm, no murmurs, no gallops, no rubs, no peripheral edema Extremities: No digital cyanosis or ischemia, no calf muscle tenderness bilaterally Psych: Alert, oriented to place, person and time Neuro: Cranial nerves II-XII grossly intact, no focal sensory deficits to touch More than 35 minutes were spent discharging this patient, and more than 50% of the time was spent in counseling the patient and family and in coordinating care. Pertinent Studies: 2D echo of the heart, and COLLEEN. negative for PFO , or blood clot. US carotid, no significant carotid stenosis, incidental finding of left thyroid nodule CT of the head without contrast , no acute process Patient Condition at Discharge: Stable Plan - Discharge Summary New Discharge Prescriptions: New Atorvastatin [Lipitor] 40 mg PO HS #30 tablet Aspirin 81 mg PO DAILY #100 tab Atorvastatin [Lipitor] 40 mg PO HS #40 tab Continue Cholecalciferol [Vitamin D3] 2,000 unit PO DAILY Multivitamins, Thera [Multivitamin (formulary)] 1 tab PO DAILY Escitalopram [Lexapro] 20 mg PO DAILY Fluticasone Nasal [place] [Flonase Nasal [place]] 2 spr EA NOSTRIL DAILY L.acidoph,Paracasei, B.lactis [Probiotic] 1 cap PO DAILY Montelukast [Singulair] 10 mg PO HS Naproxen Sodium [Aleve] 220 mg PO BID Discharge Medication List Cholecalciferol [Vitamin D3] 2,000 unit PO DAILY 05/21/16 [History] Multivitamins, Thera [Multivitamin (formulary)] 1 tab PO DAILY 05/21/16 [History ] Escitalopram [Lexapro] 20 mg PO DAILY 07/17/16 [History] Fluticasone Nasal [place] [Flonase Nasal [place]] 2 spr EA NOSTRIL DAILY 04/09/17 [ History] L.acidoph,Paracasei, B.lactis [Probiotic] 1 cap PO DAILY 04/09/17 [History] Montelukast [Singulair] 10 mg PO HS 04/09/17 [History] Naproxen Sodium [Aleve] 220 mg PO BID 04/09/17 [History] Aspirin 81 mg PO DAILY #100 tab 04/11/17 [Rx] Atorvastatin [Lipitor] 40 mg PO HS #30 tablet 04/11/17 [Rx] Atorvastatin [Lipitor] 40 mg PO HS #40 tab 04/11/17 [Rx] Follow up Appointment(s)/Referral(s): Rachel Aragon MD [STAFF PHYSICIAN] - 05/01/17 6:30 pm () Toni Grace MD [Primary Care Provider] - 1-2 days (office is closed,please call to make appointment) Yovana Altamirano MD [STAFF PHYSICIAN] - 1 Week (Office is closed,please call for appointment date and time) Patient Instructions/Handouts: Transient Ischemic Attack (DC), Thyroid Nodules (DC) Activity/Diet/Wound Care/Special Instructions: Return to work as of Saturday04/15/17 Care Plan Goals (MU): incidental finding of thyroid nodule , TSH unremarkable, I recommend OP workup with thyroid scan and possible biopsy if indicated. Discharge Disposition: HOME SELF-CARE
[2017-04-11] MEDS ORDERED: ATORVASTATIN 40 MG TAB PO SCH (21:00)
--- NOTE | 2017-04-12 05:47 | ECHOT ---
DATE OF SERVICE: 04/11/2017 PERFORMING PHYSICIAN: Sanjay Harris MD, youth career specialist. PROCEDURE PERFORMED: Transesophageal echocardiogram. INDICATION: This is a pleasant 41-year-old gentleman who presented to the hospital with symptoms consistent with TIA who was seen by the neurology service and COLLEEN was recommended to rule out any cardiac source of embolization. COMPLICATION: None. LEVEL OF SEDATION: Moderate with a sedation length of about 15 minutes. PROCEDURE DESCRIPTION: After obtaining an informed consent, explaining the procedure, benefits, risks, complications and alternatives, the patient was brought to the transesophageal echocardiogram suite. A pulse oximetry and heart rate monitors were attached to the patient prior to the procedure. The patient's throat was sprayed using lidocaine locally. Following that, the patient was turned into left lateral position. A bite guard was placed and the patient was then sedated with the above doses of Versed and fentanyl in divided doses. Following that, the transesophageal echocardiogram probe was advanced through the bite guard into the mid esophagus where 2-D echocardiogram images as well as color Doppler images of various cardiac structures were obtained. We evaluated the interatrial septum using 2-D echocardiogram, color Doppler, and contrast study. The procedure was completed. There were no complications. FINDINGS: Left ventricular dimension and systolic function appear to be within normal limits. Ejection fraction appear to be in the range of 55% to 60%. Right ventricle is of normal size and function. The left atrium and right atrium appear to be within normal limits for dimension. The aortic valve is trileaflet valve without stenosis or regurgitation, but the mitral valve seems to be normal with trace MR. Normal tricuspid valve and pulmonic valve. The interatrial septum appeared to be intact without any evidence of shunt. The left atrial appendage appeared to be normal as well. CONCLUSION: 1. There is no evidence of any cardiac source of embolization by COLLEEN. 2. Intact interatrial septum without any evidence of shunt. 3. Normal left atrial appendage without any thrombus. 4. Normal left ventricular dimension and systolic function. 5. Normal cardiac chamber sizes. 6. Normal intracardiac valves. 7. Normal aortic root dimension. 8. No evidence of pericardial effusion. MTDD
== END 2017-04-11 16:36 | disposition home or self-care (01) ==
LOC: EC 20:51 → 6SEL 23:42
PROVIDERS: ADMIT Internal Medicine; ATTEND Internal Medicine
DX: G45.9 Transient cerebral ischemic attack, unspecified (principal); E04.1 Nontoxic single thyroid nodule; D64.9 Anemia, unspecified; Z68.30 Body mass index [BMI] 30.0-30.9, adult; F41.9 Anxiety disorder, unspecified; E78.5 Hyperlipidemia, unspecified; I10 Essential (primary) hypertension; R74.8 Abnormal levels of other serum enzymes; E66.9 Obesity, unspecified; Z79.899 Other long term (current) drug therapy; Z79.51 Long term (current) use of inhaled steroids; Z79.1 Long term (current) use of non-steroidal anti-inflammatories (NSAID); Z82.49 Family history of ischemic heart disease and other diseases of the circulatory system
CPT/HCPCS: 99285; 96360 ×2; 96361 ×2; 76999; 99156; 36415; 93005; 93312; 93320; 93306; 93325; 80053; 80048; 80061; 84443; 83036; 82550; 82553; 84484; 85025 ×2; 85610; 85730; 81003; 80306; 71020; 93880; 70450; G0378 ×3; J2250; J3010

== ENCOUNTER → 2017-05-08 | Outpatient (CLI) | payer BC, OTHER ==
--- NOTE | 2017-05-08 16:53 | US ---
EXAMINATION TYPE: US thyroid st tissue head/neck DATE OF EXAM: 05/08/2017 COMPARISON: NONE CLINICAL HISTORY: E04.1 Nontoxic single thyroid nodule. nodule seen on carotid us GLAND SIZE: Right Lobe: 4.1 x 1.3 x 1.5 cm Overall Parenchyma: homogenous Left Lobe: 5.8 x 2.0 x 1.9 cm Overall Parenchyma: heterogeneous Isthmus Thickness: 0.2 cm NODULES RIGHT: # of nodules measured on right: 0 LEFT: # of nodules measured on left: 2 1. 0.9 X 0.6 x 0.7 cm hypoechoic solid nodule at the mid pole with well-defined margins. This nodu le is wider than tall and shows intranodular vascularity. Prior size: CLIPPER COUNTERS 2. 2.3 X 2.1 x 2.1 cm hypoechoic mixed nodule at the mid pole with well-defined margins. This nodul e is wider than tall and shows intranodular vascularity. Prior size: CLIPPER COUNTERS ISTHMUS: # of nodules measured in the isthmus: 0 Bilateral neck scanned, no evidence of lymphadenopathy. IMPRESSION: There is a dominant predominantly solid nodule in the left thyroid lobe that measures 2.3 x 2 cm. Thi s could relate to multinodular goiter but I think that some surveillance is needed.
== END | disposition home or self-care (01) ==
LOC: RADUSWWP 16:24
PROVIDERS: ATTEND Internal Medicine Endocrinology, Diabetes & Metabolism
DX: E04.1 Nontoxic single thyroid nodule (principal)
CPT/HCPCS: 76536; 84439; 84443

== ENCOUNTER → 2017-10-29 | Outpatient (CLI) | payer BC, OTHER ==
[2017-10-29 11:31] LABS: T4, Free (Free Thyroxine) 1.16 ng/dL (0.78-2.19)
== END | disposition home or self-care (01) ==
LOC: LABWHC1 10:27
PROVIDERS: ATTEND Internal Medicine Endocrinology, Diabetes & Metabolism
DX: C73 Malignant neoplasm of thyroid gland (principal)
CPT/HCPCS: 36415; 84439; 84443

== ENCOUNTER → 2018-01-02 | Outpatient (CLI) | payer BC | END | disposition home or self-care (01) | LOC: LABWHC1 10:20 | PROVIDERS: ATTEND Internal Medicine Endocrinology, Diabetes & Metabolism | DX: E89.0 Postprocedural hypothyroidism (principal) | CPT/HCPCS: 36415; 84443 ==

== ENCOUNTER → 2018-05-21 | Outpatient (CLI) | payer BC ==
--- NOTE | 2018-05-21 09:16 | US ---
EXAMINATION TYPE: US abdomen complete DATE OF EXAM: 05/21/2018 COMPARISON: NONE CLINICAL HISTORY: R94.4 Abnormal results of kidney function studies. elevated liver enzymes per patie nt. Difficult and limited exam due to overlying bowel gas EXAM MEASUREMENTS: Liver Length: 13.2 cm Gallbladder Wall: Surgically absent CBD: 0.4 cm Spleen: 11.1 cm Right Kidney: 9.9 x 5.8 x 5.5 cm Left Kidney: 10.7 x 5.7 x 4.6 cm Pancreas: Obscured by bowel gas, visualized portions appear wnl Liver: Prominent hyperechoic area visualized in the left lobe measuring 1.5 x 1.7 x 1.8 cm Gallbladder: Surgically absent Evidence for sonographic Eric's sign: No CBD: wnl as visualized, distal portion obscured by bowel gas Spleen: wnl Right Kidney: No hydronephrosis or masses seen Left Kidney: No hydronephrosis or masses seen Upper IVC: wnl Abd Aorta: Obscured by overlying bowel gas, visualized portion appears wnl IMPRESSION: 1. Nonspecific hyperechoic area left hepatic lobe may reflect hemangioma however can be further evalu ated on contrast CT of the abdomen.
== END ==
LOC: RADUSWWP 07:35
PROVIDERS: ATTEND Internal Medicine
DX: R94.4 Abnormal results of kidney function studies (principal)
CPT/HCPCS: 76700

== ENCOUNTER → 2018-06-18 | Outpatient (CLI) | payer BC ==
--- NOTE | 2018-06-18 14:02 | CT ---
EXAMINATION TYPE: CT abdomen w con DATE OF EXAM: 06/18/2018 COMPARISON: Abdominal ultrasound dated 05/21/2018 HISTORY: Pt presents w/previous abnormal findings abdomen region. CT DLP: 1080 mGycm Automated exposure control for dose reduction was used. TECHNIQUE: Helical acquisition of images was performed from the lung bases through the top of iliac crest to include entire abdomen. CONTRAST: Performed with Oral Contrast and with IV Contrast, patient injected with 100 mL of Isovue 300. FINDINGS: LUNG BASES: There is a 2 mm pulmonary nodule at the posterior lateral right lung base on image 7 as w ell as a 2 mm pulmonary nodule on image 5 and 4 mm solid pulmonary nodule on image 3. More elongated 4 mm solid pulmonary nodule near the right costophrenic angle is seen on image 16. LIVER/GB: When correlated with the transverse sonographic image 33 on the exam of 05/21/[address] axial image 13 in the hyperechoic region seen posterior to the left portal vein represents fat that is extrahepatic. There are 2 tiny hypoattenuated hepatic lesions on image 18 within the right hepatic lobe and on image 14 within the left hepatic lobe that are too small to accurately characterize. The se measure 7 mm and 4 mm. Remainder the liver is unremarkable. Gallbladder surgically absent. PANCREAS: No significant abnormality is seen. SPLEEN: No significant abnormality is seen. ADRENALS: No significant abnormality is seen. KIDNEYS: 7 mm hypoattenuating left renal lesion on image 28 also is too small to accurately character ize but appear cystic. 5 mm right lower pole renal cyst is present. No hydronephrosis is seen of eith er kidney. BOWEL: No dilated large or small bowel. Appendix is air-filled and within normal limits. LYMPH NODES: No greater than 1 cm short axis lymph node is seen within the abdomen. OSSEOUS STRUCTURES: No significant abnormality is seen. FREE AIR: NO FREE AIR IS VISUALIZED. IMPRESSION: 1. THE PREVIOUSLY SEEN HEPATIC ABNORMALITY REPRESENTS BENIGN EXTRAHEPATIC FAT POSTERIOR TO THE LEFT P ORTAL VEIN. HOWEVER THERE ARE 2 HEPATIC LESIONS THAT ARE TOO SMALL TO ACCURATELY CHARACTERIZE. IN A P ATIENT WITH NO BACKGROUND HEPATOCELLULAR DISEASE THESE LIKELY REPRESENT CYSTS ALTHOUGH IF THERE IS FU RTHER CONCERN SURVEILLANCE COULD BE PERFORMED. SIMILAR RENAL LESIONS ARE SEEN. 2. RIGHT-SIDED PULMONARY NODULES FOR WHICH FULL EVALUATION OF THE CHEST COULD BE PERFORMED WITH CT TH ORAX.
== END ==
LOC: RADCTMAIN 10:37
PROVIDERS: ATTEND Internal Medicine
DX: K76.9 Liver disease, unspecified (principal)
CPT/HCPCS: 74160; Q9967

== ENCOUNTER → 2018-06-27 | Outpatient (CLI) | payer BC ==
--- NOTE | 2018-06-27 16:35 | US ---
EXAMINATION TYPE: US thyroid st tissue head/neck DATE OF EXAM: 06/27/2018 COMPARISON: US CLINICAL HISTORY: C73 Malignant neoplasm of thyroid gland. GLAND SIZE: Right Lobe: 4.9 x 1.7 x 1.6 cm Overall Parenchyma: homogenous Left Lobe: Surgically absent cm Isthmus Thickness: 0.1 cm NODULES RIGHT: # of nodules measured on right: 0 LEFT: # of nodules measured on left: 0 ISTHMUS: # of nodules measured in the isthmus: 0 Bilateral neck scanned, no evidence of lymphadenopathy. Left lobe surgically absent. IMPRESSION: 1. No suspicious nodules right lobe thyroid 2. No suspicious recurrent left thyroid bed.
== END ==
LOC: RADUSWWP 11:02
PROVIDERS: ATTEND Internal Medicine Endocrinology, Diabetes & Metabolism
DX: C73 Malignant neoplasm of thyroid gland (principal)
CPT/HCPCS: 76536

== ENCOUNTER → 2018-07-02 | Outpatient (CLI) | payer BC ==
--- NOTE | 2018-07-02 09:04 | CT ---
EXAMINATION TYPE: CT chest wo con DATE OF EXAM: 07/02/2018 COMPARISON: CT abdomen June 18, 2018 HISTORY: Solitary pulmonary nodule, recent abnormal CT. CT DLP: 578 mGycm. Automated Exposure Control for Dose Reduction was Utilized. TECHNIQUE: CT scan of the thorax is performed without IV contrast. FINDINGS: LUNGS: There is stable 2 mm peripheral nodule right lower lobe axial image 39. There is stable 2 mm n odule anterior and superior to this axial image 38. There is stable 4 x 4 mm nodule superior to these right lower lobe axial image 35. Lateral nodule right lung base measures 4 x 3 mm current study imag e 50, stable from prior. No additional right-sided nodules are evident. There is stable 3 mm peripheral nodule left lower lobe axial image 39 and slight 3 mm nodular thicken ing along the left fissure same axial image. No pleural effusion or pneumothorax is present bilaterally. Tracheobronchial tree is patent. MEDIASTINUM: Lack of IV contrast is noted to limit evaluation for mediastinal and especially hilar ad enopathy. There are no definitive greater than 1 cm hilar or mediastinal lymph nodes. No cardiomega ly or pericardial effusion is seen. OTHER: Cholecystectomy clips are redemonstrated. Mild multilevel anterior spurring in the spine is se en. IMPRESSION: Stable right greater than left bilateral lower lobe nodules measuring up to 4 mm in size. Fleischner Society recommendations are no further follow-up for low risk patient and recommend optio nal CT at 12 months time in high risk patient. Correlate clinically.
== END | disposition home or self-care (01) ==
LOC: RADCTMAIN 07:47
PROVIDERS: ATTEND Internal Medicine
DX: R91.8 Other nonspecific abnormal finding of lung field (principal)
CPT/HCPCS: 71250

== ENCOUNTER → 2018-11-26 | Outpatient (CLI) | payer BC ==
--- NOTE | 2018-11-27 06:40 | US ---
EXAMINATION TYPE: US thyroid st tissue head/neck DATE OF EXAM: 11/26/[address] chest July 02, 2018. Thyroid ultrasound June 27, 2018 CLINICAL HISTORY: C73 MALIGNANT NEOPLASM OF THYROID GLAND. left thyroidectomy, follow up scan GLAND SIZE: Right Lobe: 4.2 x 1.6 x 1.0 cm Overall Parenchyma: homogenous Left Lobe: Surgically absent cm NODULES RIGHT: # of nodules measured on right: 0 LEFT: # of nodules measured on left: surgically absent, no residual tissue seen on today's exam ISTHMUS: # of nodules measured in the isthmus: 0 Bilateral neck scanned, no evidence of lymphadenopathy. Right thyroid lobe remains somewhat small in size and homogeneous in echotexture without discrete nod ule. No suspicious thyroid tissue seen in scanning of left thyroid bed on ultrasound. No suspicious t issue seen at level of thyroid isthmus. IMPRESSION: Overall stable findings, no new recurrent tissue or suspicious nodules.
== END | disposition home or self-care (01) ==
LOC: RADUSWWP 16:21
PROVIDERS: ATTEND Internal Medicine Endocrinology, Diabetes & Metabolism
DX: C73 Malignant neoplasm of thyroid gland (principal)
CPT/HCPCS: 36415; 76536; 84443

== ENCOUNTER → 2019-05-20 | Outpatient (CLI) | payer BC | LOC: LABWHC1 10:21 | PROVIDERS: ATTEND Internal Medicine Endocrinology, Diabetes & Metabolism | DX: C73 Malignant neoplasm of thyroid gland (principal) | CPT/HCPCS: 36415; 84443 ==

== ENCOUNTER → 2019-07-20 | Outpatient (CLI) | payer BC | LOC: LABWHC1 08:09 | PROVIDERS: ATTEND Internal Medicine Endocrinology, Diabetes & Metabolism | DX: C73 Malignant neoplasm of thyroid gland (principal) | CPT/HCPCS: 36415; 84443 ==

== ENCOUNTER → 2019-11-13 | Outpatient (CLI) | payer BC ==
--- NOTE | 2019-11-13 13:09 | US ---
EXAMINATION TYPE: US carotid duplex BILAT DATE OF EXAM: 11/13/2019 COMPARISON: Carotid US done 04/10/2017. CLINICAL HISTORY: R55 Syncope and collapse. EXAM MEASUREMENTS: RIGHT: Peak Systolic Velocity (PSV) cm/sec ----- Right CCA: 89.7 ----- Right ICA: 68.4 ----- Right ECA: 65.8 ICA/CCA ratio: 0.8 RIGHT: End Diastole cm/sec ----- Right CCA: 31.4 ----- Right ICA: 32.7 ----- Right ECA: 21.1 LEFT: Peak Systolic Velocity (PSV) cm/sec ----- Left CCA: 62.1 ----- Left ICA: 60.1 ----- Left ECA: 52.7 ICA/CCA ratio: 1.0 LEFT: End Diastole cm/sec ----- Left CCA: 24.0 ----- Left ICA: 28.2 ----- Left ECA: 13.3 VERTEBRALS (direction of flow): Right Vertebral: Antegrade Left Vertebral: Antegrade Rhythm: Normal Chandra scale images show no significant focal plaque at carotid bulb level bilaterally. IMPRESSION: No hemodynamically significant stenosis is seen in either internal carotid artery. Criteria for Assigning % of Stenosis / Diameter reduction (Estimation based on the indirect measurements of the internal carotid artery velocities (ICA PSV). 1. Normal (no stenosis)=ICA PSV < 125 cm/s: ratio < 2.0: ICA EDV<40 cm/s. 2. Less than 50% stenosis=ICA PSV < 125 cm/s: ratio < 2.0: ICA EDV<40 cm/s. 3. 50 to 69% stenosis=ICA PSV of 125 to 230 cm/s: ration 2.0 ? 4.0: ICA EDV 40-100 cm/s. 4. Greater than 70% stenosis to near occlusion= ICA PSV > 230 cm/s: ratio > 4.0: ICA EDV > 100 cm/s. 5. Near occlusion= ICA PSV velocities may be low or undetectable: variable ratio and ICA EDV. 6. Total occlusion=unable to detect flow.
--- NOTE | 2019-11-14 10:47 | ECHOF ---
Referral Reason:R55 Syncope and collapse MEASUREMENTS -------- HEIGHT: 175.3 cm WEIGHT: 97.5 kg BP: IVSd: 1.1 cm (0.6 - 1.1) LVIDd: 3.8 cm (3.9 - 5.3) LVPWd: 1.2 cm (0.6 - 1.1) IVSs: 1.7 cm LVIDs: 2.7 cm LVPWs: 1.7 cm LAESV Index (A-L): 18.25 ml/m Ao Diam: 3.1 cm (2.0 - 3.7) AV Cusp: 2.4 cm (1.5 - 2.6) LA Diam: 3.9 cm (2.7 - 3.8) MV EXCURSION: 17.007 mm (> 18.000) MV EF SLOPE: 105 mm/s (70 - 150) EPSS: 0.7 cm MV E Rajinder: 0.52 m/s MV DecT: 180 ms MV A Rajinder: 0.68 m/s MV E/A Ratio: 0.76 RAP: 5.00 mmHg RVSP: 17.01 mmHg FINDINGS -------- Sinus rhythm. This was a technically good study. The left ventricular size is normal. There is mild concentric left ventricular hypertrophy. Overa ll left ventricular systolic function is mildly impaired with, an EF between 45 - 50 %. Mid Basal in feroseptal LV wall motion is akinetic. Mid inferior LV wall motion is hypokinetic. The right ventricle is normal in size. Normal LA size by volume 22+/-6 ml/m2. The right atrial size is normal. The aortic valve is trileaflet, and appears structurally normal. No aortic stenosis or regurgitation. The mitral valve is normal. There is trace mitral regurgitation. The tricuspid valve appears structurally normal. Trace tricuspid regurgitation present. Right natalie tricular systolic pressure is normal at < 35 mmHg. There is no pulmonic regurgitation present. The aortic root size is normal. Normal inferior vena cava with normal inspiratory collapse consistent with estimated right atrial pre ssure of 5 mmHg. There is no pericardial effusion. CONCLUSIONS -------- 1. Sinus rhythm. 2. The left ventricular size is normal. 3. There is mild concentric left ventricular hypertrophy. 4. Overall left ventricular systolic function is mildly impaired with, an EF between 45 - 50 %. 5. Basal inferoseptal LV wall motion is akinetic. 6. Mid inferior LV wall motion is hypokinetic. 7. Normal LA size by volume 22+/-6 ml/m2. 8. The aortic valve is trileaflet, and appears structurally normal. No aortic stenosis or regurgitati on. 9. There is trace mitral regurgitation. 10. Trace tricuspid regurgitation present. 11. Right ventricular systolic pressure is normal at < 35 mmHg. 12. There is no pulmonic regurgitation present. 13. The aortic root size is normal. 14. Normal inferior vena cava with normal inspiratory collapse consistent with estimated right atrial pressure of 5 mmHg. 15. There is no pericardial effusion. COMPUTER HARDWARE ENGINEER: Elizabeth Jameson RDCS
== END | disposition home or self-care (01) ==
LOC: RADUSWWP 12:15
PROVIDERS: ATTEND Internal Medicine
DX: R55 Syncope and collapse (principal)
CPT/HCPCS: 93306; 93880

== ENCOUNTER → 2020-03-25 | Outpatient (CLI) | payer BC ==
--- NOTE | 2020-03-25 15:36 | XR ---
EXAMINATION TYPE: XR knee limited RT DATE OF EXAM: 03/25/2020 CLINICAL HISTORY: Right knee pain TECHNIQUE: AP and lateral views of the right knee are obtained. COMPARISON: None. FINDINGS: There is no acute fracture/dislocation evident in right knee. The tri-compartment joint s paces appear within normal limits. Normal osseous mineralization. The overlying soft tissue appears u nremarkable. IMPRESSION: Normal right knee radiograph.
== END | disposition home or self-care (01) ==
LOC: RADXRMAIN 11:24
PROVIDERS: ATTEND Internal Medicine
DX: M25.561 Pain in right knee (principal)

== ENCOUNTER → 2021-01-06 | Outpatient (CLI) | payer BC | END | disposition home or self-care (01) | LOC: LABWHC1 10:35 | PROVIDERS: ATTEND Internal Medicine Endocrinology, Diabetes & Metabolism | DX: C73 Malignant neoplasm of thyroid gland (principal) | CPT/HCPCS: 36415; 84443 ==

== ENCOUNTER → 2021-01-18 | Outpatient (CLI) | payer BC ==
--- NOTE | 2021-01-18 11:03 | US ---
EXAMINATION TYPE: US thyroid st tissue head/neck DATE OF EXAM: 01/18/2021 COMPARISON: Ultrasound 11/26/2018 CLINICAL HISTORY: C73 Malignant neoplasm of thyroid gland. left thyroid removed follow up GLAND SIZE: Right Lobe: 4.0 x 1.1 x 1.0 cm Overall Parenchyma: homogenous Left Lobe: removed cm Isthmus Thickness: .2 cm NODULES RIGHT: # of nodules measured on right: 0 LEFT: # of nodules measured on left: removed ISTHMUS: # of nodules measured in the isthmus: 0 Bilateral neck scanned, no evidence of lymphadenopathy. IMPRESSION: Stable postop changes
== END | disposition home or self-care (01) ==
LOC: RADUSWWP 08:23
PROVIDERS: ATTEND Internal Medicine Endocrinology, Diabetes & Metabolism
DX: C73 Malignant neoplasm of thyroid gland (principal); Z98.890 Other specified postprocedural states
CPT/HCPCS: 76536

== ENCOUNTER 2021-04-19 04:28 | Emergency (ER) | payer BC ==
[2021-04-19] MEDS ORDERED: FAMOTIDINE 20 MG/2 ML VIAL IV STA (04:59)
[2021-04-19] MEDS ORDERED: diphenhydrAMINE 50 MG/ML 1 ML VIAL IVP STA (04:59)
[2021-04-19] MEDS ORDERED: DEXAMETHASONE SOD PHOSPHATE 10 MG/ML 1 ML VIAL IV STA (04:59)
[2021-04-19] MEDS ORDERED: SODIUM CHLORIDE 0.9% 1,000 ML IV STA (04:59)
--- NOTE | 2021-04-19 05:03 | ED ---
Allergic Reaction HPI - General Chief complaint: Allergic Reaction Stated complaint: Allergic reaction Time Seen by Provider: 04/19/21 04:34 Source: patient, RN notes reviewed, old records reviewed Mode of arrival: wheelchair Limitations: no limitations - History of Present Illness Initial Comments: This is a 46-year-old male to the emergency room today for evaluation of ALLERGIC reaction. Patient unsure of cause of ALLERGIC reaction of feels like event was very severe. Patient does have lip swelling heart racing but no significant shortness of breath. This does feel syncopal or near syncopal. No prior history of significant events MD Complaint: allergic reaction -: hour(s) Exposure: unknown Symptoms: rash, itching, lip swelling, orolingual swelling, hoarseness Severity: mild Treatment Prior to Arrival: none Previous Allergy History: none - Related Data Home Medications Medication Instructions Recorded Confirmed Cholecalciferol [Vitamin D3 (25 2,000 unit PO DAILY 05/21/16 04/09/17 Mcg = 1000 Iu)] Multivitamins, Thera [Multivitamin 1 tab PO DAILY 05/21/16 04/09/17 (formulary)] Escitalopram [Lexapro] 20 mg PO DAILY 07/17/16 04/09/17 Fluticasone Nasal [place] [Flonase 2 spr EA NOSTRIL DAILY 04/09/17 04/09/17 Nasal [place]] L.acidoph,Paracasei, B.lactis 1 cap PO DAILY 04/09/17 04/09/17 [Probiotic] Montelukast [Singulair] 10 mg PO HS 04/09/17 04/09/17 Naproxen Sodium [Aleve] 220 mg PO BID 04/09/17 04/09/17 Previous Rx's Medication Instructions Recorded Aspirin 81 mg PO DAILY #100 tab 04/11/17 Atorvastatin [Lipitor] 40 mg PO HS #30 tablet 04/11/17 Atorvastatin [Lipitor] 40 mg PO HS #40 tab 04/11/17 hydrOXYzine HCL [Atarax] 25 mg PO TID PRN #15 tab 04/19/21 predniSONE 50 mg PO DAILY #5 tab 04/19/21 Allergies Allergy/AdvReac Type Severity Reaction Status Date / Time No Known Allergies Allergy Verified 04/09/17 21:41 Review of Systems ROS Statement: Those systems with pertinent positive or pertinent negative responses have been documented in the HPI. ROS Other: All systems not noted in ROS Statement are negative. Past Medical History Past Medical History: No Reported History, Hyperlipidemia History of Any Multi-Drug Resistant Organisms: None Reported Past Surgical History: Cholecystectomy Additional Past Surgical History / Comment(s): dev. septum repair, polyp ectomy 07/13 Past Anesthesia/Blood Transfusion Reactions: No Reported Reaction Past Psychological History: Anxiety Smoking Status: Never smoker Past Alcohol Use History: Occasional Past Drug Use History: None Reported - Past Family History Mother Family Medical History: Asthma, COPD, Hyperlipidemia Father Family Medical History: Hyperlipidemia, Hypertension, Osteoarthritis (OA) General Exam Limitations: no limitations General appearance: alert, in no apparent distress, anxious Head exam: Present: atraumatic, normocephalic, normal inspection Eye exam: Present: normal appearance, PERRL, EOMI. Absent: scleral icterus, conjunctival injection, periorbital swelling ENT exam: Present: normal exam, mucous membranes moist Neck exam: Present: normal inspection. Absent: tenderness, meningismus, lymphadenopathy Respiratory exam: Present: normal lung sounds bilaterally. Absent: respiratory distress, wheezes, rales, rhonchi, stridor Cardiovascular Exam: Present: normal rhythm, tachycardia, normal heart sounds. Absent: systolic murmur, diastolic murmur, rubs, gallop, clicks GI/Abdominal exam: Present: soft, normal bowel sounds. Absent: distended, tenderness, guarding, rebound, rigid Extremities exam: Present: normal inspection, full ROM, normal capillary refill. Absent: tenderness, pedal edema, joint swelling, calf tenderness Back exam: Present: normal inspection Neurological exam: Present: alert, oriented X3, CN II-XII intact Psychiatric exam: Present: normal affect, normal mood Skin exam: Present: warm, dry, intact, normal color. Absent: rash Course Vital Signs 04/19/21 04/19/21 04:36 07:27 Temperature 97.6 F 98.2 F Pulse Rate 131 H 74 Respiratory 18 20 Rate Blood Pressure 128/80 132/87 O2 Sat by Pulse 95 99 Oximetry - Reevaluation(s) Reevaluation #1: 04/19/21 Medical record is reviewed Symptoms are improved here in the emergency department Patient informed results and questions answered Patient is in no acute distress Medical Decision Making - Medical Decision Making 46 male to the ER for evaluation of ALLERGIC-type reaction, swelling of lip and face. Patient is relatively symptomatic currently and can be discharged home - EKG Data -: EKG Interpreted by Me (EKG is sinus rhythm 80. RI 144 QRS 84 QTc 470) Disposition Clinical Impression: Allergic reaction Disposition: HOME SELF-CARE Condition: Good Instructions (If sedation given, give patient instructions): Anaphylaxis (ED) Prescriptions: hydrOXYzine HCL [Atarax] 25 mg PO TID PRN #15 tab PRN Reason: Itching predniSONE 50 mg PO DAILY #5 tab Is patient prescribed a controlled substance at d/c from ED?: No Referrals: Beverley Lee MD [Primary Care Provider] - 1-2 days
[2021-04-19 07:32] VITALS: BP 132/87; PULSE 74; RESP 20; TEMP 98.2
== END 2021-04-19 07:31 | disposition home or self-care (01) ==
LOC: EC 04:28
DX: T78.40XA Allergy, unspecified, initial encounter (principal); F41.9 Anxiety disorder, unspecified; Z79.52 Long term (current) use of systemic steroids; Z79.82 Long term (current) use of aspirin; Z90.49 Acquired absence of other specified parts of digestive tract
CPT/HCPCS: 93005; 99284; 96374; 96375 ×2; 96361; J1200; J1100

== ENCOUNTER → 2021-08-09 | Outpatient (CLI) | payer BC ==
--- NOTE | 2021-08-09 12:52 | US ---
EXAMINATION TYPE: US thyroid st tissue head/neck DATE OF EXAM: 08/09/2021 COMPARISON: US Thyroid 01/18/2021 CLINICAL HISTORY: C73 MALIGNANT NEOPLASM OF THYROID GLAND. Hx of left thyroidectomy. GLAND SIZE: Right Lobe: 3.5 x 1.1 x 1.3 cm Overall Parenchyma: homogenous Left Lobe: Surgically absent Isthmus Thickness: 0.20 cm NODULES RIGHT: # of nodules measured on right: 0 LEFT: Surgically absent ISTHMUS: # of nodules measured in the isthmus: 0 Bilateral neck scanned, no evidence of lymphadenopathy. No evidence of residual tissue in the left thyroid fossa. Right thyroid appears homogenous without no dule presence. IMPRESSION: 1. Postsurgical change with no sizable thyroid nodules.
== END | disposition home or self-care (01) ==
LOC: RADUSWWP 12:20
PROVIDERS: ATTEND Internal Medicine Endocrinology, Diabetes & Metabolism
DX: Z85.850 Personal history of malignant neoplasm of thyroid (principal)
CPT/HCPCS: 76536

== ENCOUNTER → 2023-11-28 | Outpatient (CLI) | payer BC ==
--- NOTE | 2023-11-28 11:25 | US ---
EXAMINATION TYPE: US carotid duplex BILAT DATE OF EXAM: 11/28/2023 COMPARISON: 11/13/2019 CLINICAL INDICATION: Male, 48 years old with history of I42.9 CARDIOMYOPATHY, UNSPECIFIED I65.23; Pat ient states he has early heart disease. No other symptoms TECHNIQUE: Carotid duplex ultrasound examination. Indirect Doppler criteria was utilized. FINDINGS: EXAM MEASUREMENTS: RIGHT: Peak Systolic Velocity (PSV) cm/sec ----- Right CCA: 69.1 ----- Right ICA: 74.6 ----- Right ECA: 74.9 ICA/CCA ratio: 1.1 RIGHT: End Diastole cm/sec ----- Right CCA: 19.7 ----- Right ICA: 26.3 ----- Right ECA: 12.8 LEFT: Peak Systolic Velocity (PSV) cm/sec ----- Left CCA: 82.2 ----- Left ICA: 73.5 ----- Left ECA: 75.7 ICA/CCA ratio: 0.9 LEFT: End Diastole cm/sec ----- Left CCA: 19.2 ----- Left ICA: 32.9 ----- Left ECA: 13.1 VERTEBRALS (direction of flow): Right Vertebral: Antegrade Left Vertebral: Antegrade Rhythm: GEAR HOBBER OPERATOR NOTES: No significant velocity elevations seen today. IMPRESSION: No evidence for hemodynamically significant stenosis. Criteria for Assigning % of Stenosis / Diameter reduction (Estimation based on the indirect measurements of the internal carotid artery velocities (ICA PSV). 1. Normal (no stenosis)=ICA PSV < 125 cm/s: ratio < 2.0: ICA EDV<40 cm/s. 2. Less than 50% stenosis=ICA PSV < 125 cm/s: ratio < 2.0: ICA EDV<40 cm/s. 3. 50 to 69% stenosis=ICA PSV of 125 to 230 cm/s: ration 2.0 ? 4.0: ICA EDV 40-100 cm/s. 4. Greater than 70% stenosis to near occlusion= ICA PSV > 230 cm/s: ratio > 4.0: ICA EDV > 100 cm/s. 5. Near occlusion= ICA PSV velocities may be low or undetectable: variable ratio and ICA EDV. 6. Total occlusion=unable to detect flow.
--- NOTE | 2023-11-28 13:02 | CA ---
Transthoracic Echo Report Name: Nael Archer Age: 48 Gender: M : 1975 Exam Date: 11/28/2023 11:16 Exam Location: [place] [facility] Ht (in): 69 Wt (lb): 205 Ordering Physician: Beverley Lee MD Attending/Referring Phys: Beverley Lee MD Copy Preparer Natasha aSlas RDCS Procedure CPT: Indications: I42.9 cardiomyopathy Cardiac Hx: Technical Quality: Fair Contrast 1: Total Dose (mL): Contrast 2: Total Dose (mL): MEASUREMENTS (Male / Female) Normal Values 2D ECHO LV Diastolic Diameter PLAX 4.3 cm 4.2 - 5.9 / 3.9 - 5.3 cm LV Systolic Diameter PLAX 3.1 cm IVS Diastolic Thickness 1.2 cm 0.6 - 1.0 / 0.6 - 0.9 cm LVPW Diastolic Thickness 1.0 cm 0.6 - 1.0 / 0.6 - 0.9 cm LV Relative Wall Thickness 0.5 RV Internal Dim ED PLAX 3.7 cm LA Volume 57.1 cm??? 18 - 58 / 22 - 52 cm??? LA Volume Index 26.5 cm???/m??? 16 - 28 cm???/m??? M-MODE Aortic Root Diameter MM 3.4 cm LA Systolic Diameter MM 4.7 cm LA Ao Ratio MM 1.4 AV Cusp Separation MM 2.3 cm DOPPLER AV Peak Velocity 148.2 cm/s AV Peak Gradient 8.8 mmHg AV Mean Velocity 85.8 cm/s AV Mean Gradient 3.7 mmHg AV Velocity Time Integral 28.4 cm LVOT Peak Velocity 110.2 cm/s LVOT Peak Gradient 4.9 mmHg LVOT Velocity Time Integral 25.2 cm MV Area PHT 4.1 cm??? Mitral E Point Velocity 81.5 cm/s Mitral A Point Velocity 96.9 cm/s Mitral E to A Ratio 0.8 MV Deceleration Time 187.1 ms MV E' Velocity 6.1 cm/s Mitral E to MV E' Ratio 13.3 TR Peak Velocity 198.4 cm/s TR Peak Gradient 15.7 mmHg Right Ventricular Systolic Press 20.7 mmHg FINDINGS Left Ventricle Mildly increased left ventricular wall thickness. Left ventricular cavity size normal. Normal left ventricular systolic function with no obvious regional wall motion abnormalities. Left ventricular ejection fraction is estimated at 50-55 %. Right Ventricle Mild right ventricular dilatation. Right ventricular systolic pressure within normal limits. Right Atrium Normal right atrial size. Left Atrium Mildly increased left atrial area. Mitral Valve Structurally normal mitral valve. Mild mitral annular calcification. Mild mitral regurgitation. Aortic Valve Trileaflet aortic valve. No aortic valve stenosis or regurgitation. Tricuspid Valve Structurally normal tricuspid valve. Mild tricuspid regurgitation. Pulmonic Valve Structurally normal pulmonic valve. Pericardium No pericardial effusion. Aorta Normal size aortic root and proximal ascending aorta. CONCLUSIONS Left ventricular EF 50-55% Mild mitral regurgitation Mild tricuspid regurgitation No pericardial effusion RVSP 21 Previewed by: Dr. Carrington Amezquita DO (Electronically Signed) Final Date: 28 November 2023 13:02
== END | disposition home or self-care (01) ==
LOC: RADUSWWP 10:15
PROVIDERS: ATTEND Internal Medicine
DX: I34.0 Nonrheumatic mitral (valve) insufficiency (principal); I36.1 Nonrheumatic tricuspid (valve) insufficiency; I65.23 Occlusion and stenosis of bilateral carotid arteries; I42.9 Cardiomyopathy, unspecified
CPT/HCPCS: 93306; 93880

== ENCOUNTER 2024-03-18 08:33 | Day surgery (SDC) | payer BC ==
[2024-03-16 10:22] VITALS: BMI 31.0
[2024-03-18 08:53] VITALS: TEMP 97
[2024-03-18] MEDS: IV FLUID CONTINUATION 1,000 ML IV ONE (09:03)
[2024-03-18] MEDS: LACTATED RINGERS 1,000 ML IV SCH (09:04)
[2024-03-18] MEDS ORDERED: PROPOFOL 10 MG/ML 20 ML VIAL IV ONE (09:35)
--- NOTE | 2024-03-18 09:52 | P.PCN ---
Date of Procedure: 03/18/24 Procedure(s) Performed: BRIEF HISTORY: Patient is a 48-year-old pleasant white male scheduled for an elective colonoscopy as a part of evaluation of prior history of colon polyps. Last colonoscopy was in 2019 was noted to have a tubular adenoma. Lately has been having chronic diarrhea with bowel significant 3 to 4 days of loose watery in consistency but no blood or mucus in the stool PROCEDURE PERFORMED: Colonoscopy with biopsy and snare polypectomy. PREOPERATIVE DIAGNOSIS: History of colon polyps and chronic diarrhea. IV sedation per Anesthesia. PROCEDURE: After informed consent was obtained, the patient, was brought into the endoscopy unit. IV sedation was administered by Anesthesia under continuous monitoring. Digital rectal examination was normal. Initially the Olympus CF-160 flexible video colonoscope was then inserted in the rectum, gradually advanced into the cecum without any difficulty. Careful examination was performed as the scope was gradually being withdrawn. Ileocecal valve and the appendiceal orifice were visualized and appeared normal. Prep was excellent. Mucosa of the cecum, appeared normal. Descending colon there was a 5 mm and 8 mm polyp that was removed by cold snare polypectomy. Ascending colon, transverse colon, descending colon, appeared normal. The sigmoid colon there was a 1 cm polyp removed by snare polypectomy. Rest of the sigmoid colon, and rectum appeared normal. Random biopsies were done from the ascending and descending colon rule out microscopic/collagenous colitis. Retroflexion was performed in the rectum and no lesions were seen. The patient tolerated the procedure well. IMPRESSION: 5 mm and 8 mm ascending colon polyp status post cold snare polypectomy 1 cm sigmoid colon polyp s/p polypectomy Rest of the colon appeared normal RECOMMENDATIONS: Findings of this examination were discussed with the patient as well as his family. He was advised to follow-up with the biopsy results. If the biopsy reveals adenoma, recommended repeat colonoscopy in 3 years. Follow- up in the office in 2 weeks.
[2024-03-18 10:20] VITALS: RESP 16
[2024-03-18 10:21] VITALS: BP 111/71; PULSE 72
== END 2024-03-18 10:37 | disposition home or self-care (01) ==
LOC: ORWHC2ENDO 08:33
PROVIDERS: ATTEND Internal Medicine Gastroenterology
DX: D12.2 Benign neoplasm of ascending colon (principal); D12.5 Benign neoplasm of sigmoid colon; K52.9 Noninfective gastroenteritis and colitis, unspecified; I10 Essential (primary) hypertension; E78.5 Hyperlipidemia, unspecified; G47.33 Obstructive sleep apnea (adult) (pediatric); E03.9 Hypothyroidism, unspecified; K21.9 Gastro-esophageal reflux disease without esophagitis; F41.9 Anxiety disorder, unspecified; Z86.010 Personal history of colon polyps; Z79.890 Hormone replacement therapy; Z79.899 Other long term (current) drug therapy
CPT/HCPCS: 88305; 45380; 45385; J2704